=== PATIENT | female | born 1935 | race Caucasian/White ===

== ENCOUNTER 2018-11-17 04:22 | Inpatient (IN) | payer MEDICARE ==
[~2018-11-17] VITALS: Ht 170.2 cm; Wt 99.0 kg
[~2018-11-17 04:22] MED LIST: Z.0.ADVAIR 250-501 E IH; Z.0.COUMADIN4 MG PO; Z.0.LEXAPRO20 MG PO; Z.0.XANAX1 MG PO
[2018-11-17] MEDS ORDERED: IPRATROPIUM BROMIDE 0.02% 2.5 ML NEB NEB STA (04:53)
[2018-11-17] MEDS ORDERED: ALBUTEROL SULF 0.083% NEB SOLN 3 ML NEB NEB STA (04:53)
[2018-11-17] MEDS ORDERED: SODIUM CHLORIDE 0.9% 500ML 500 ML IV STA (04:53)
[2018-11-17] MEDS ORDERED: CEFEPIME HCL 2 GM VIAL IV ONE (05:00)
[2018-11-17] MEDS ORDERED: FAMOTIDINE 20 MG/2 ML VIAL IV ONE (05:00)
[2018-11-17] MEDS ORDERED: ONDANSETRON HCL INJ 2MG/ML 2ML 2 MG/ML VIAL IV PRN ×2 (05:00→06:45)
[2018-11-17] MEDS ORDERED: DILTIAZEM HCL 5 MG/ML 5 ML VIAL IV STA (05:25)
[2018-11-17] MEDS ORDERED: ACETAMINOPHEN 325 MG TAB PO ONE (05:30)
[2018-11-17 05:46] LABS: BASOPHILS % 0.3 % (0.0-1.0); EOSINOPHILS # (AUTO) 0.1 (0.0-0.4); EOSINOPHILS % 0.8 % (0.0-6.0); HEMATOCRIT 34.5 % (34.2-44.1); HEMOGLOBIN 11.6 g/dL (12.0-16.0); LYMPHOCYTES # (AUTO) 0.3 (1.0-3.2); LYMPHOCYTES % 3.6 % (18.0-39.1); MEAN CORPUSCULAR HEMOGLOBIN 31.8 pg (28-32); MEAN CORPUSCULAR HGB CONC 33.6 g/dL (31-35); MEAN CORPUSCULAR VOLUME 94.5 fL (81-99); MONOCYTES # (AUTO) 0.2 (0.2-0.8); MONOCYTES % 2.2 % (4.4-11.3); NEUTROPHILS # (AUTO) 8.8 (2.1-6.9); NEUTROPHILS % 92.5 % (38.7-80.0); PLATELET COUNT 93 x10e3/uL (140-360); RED BLOOD COUNT 3.65 x10e6/uL (3.6-5.1); RED CELL DISTRIBUTION WIDTH 12.7 % (11.7-14.4)
[2018-11-17 06:13] LABS: CREATINE KINASE MB 0.8 ng/mL (0-5.0)
[2018-11-17 06:14] LABS: ALBUMIN 3.5 g/dL (3.5-5.0); ANION GAP 14.6 mmol/L (8-16); CALCIUM 8.6 mg/dL (8.4-10.2); CREATININE, SERUM 1.55 mg/dL (0.57-1.11); POTASSIUM 3.6 mmol/L (3.5-5.1)
[2018-11-17] MEDS ORDERED: SODIUM CHLORIDE 0.9% 100 ML 100 ML IV ONE (06:15)
[2018-11-17] MEDS ORDERED: LACTULOSE SYRUP 20 GM/30 ML UDC PO PRN (06:45)
[2018-11-17] MEDS ORDERED: ACETAMINOPHEN 325 MG TAB PO PRN (06:45)
[2018-11-17] MEDS ORDERED: SODIUM CHLORIDE FLUSH 10 ML SYR INJ PRN (06:45)
[2018-11-17] MEDS ORDERED: AZITHROMYCIN 500MG/NS 250 ML 250 ML IV SCH (06:45)
[2018-11-17] MEDS ORDERED: DIPHENHYDRAMINE HCL INJ 50 MG/ML VIAL IV PRN (06:45)
[2018-11-17] MEDS ORDERED: CEFTRIAXONE SOD 1 GM VIAL IV SCH (06:45)
[2018-11-17] MEDS ORDERED: IBUPROFEN 200 MG TAB PO PRN (06:45)
[2018-11-17] MEDS ORDERED: SODIUM CHLORIDE 0.9% 100 ML ONE (06:45)
[2018-11-17] MEDS ORDERED: ZOLPIDEM TARTRATE 5 MG TAB PO PRN (06:45)
--- NOTE | 2018-11-17 06:50 | NUR ---
report given to cody mojica day shift nurse.
--- NOTE | 2018-11-17 06:50 | Diagnostic Imaging Report ---
EXAM: CHEST SINGLE (PORTABLE), AP 1 view INDICATION: Shortness of breath COMPARISON: None FINDINGS: LINES/TUBES: None LUNGS: No consolidations or edema. Mild bibasilar subsegmental atelectasis. PLEURA: No effusions or pneumothorax. HEART AND MEDIASTINUM: Within normal limits for technique. BONES AND SOFT TISSUES: No acute findings. IMPRESSION: Mild bibasilar subsegmental atelectasis. Signed by: Dr. Briseyda Curtis M.D. on 11/17/2018 6:47 AM
[2018-11-17 06:58] LABS: BILIRUBIN,URINE NEGATIVE (NEGATIVE); CLARITY,URINE CLEAR (CLEAR); COLOR,URINE YELLOW (YELLOW); KETONES,URINE NEGATIVE (NEGATIVE); LEUKOCYTE ESTERASE ,URINE NEGATIVE (NEGATIVE); NITRITE,URINE NEGATIVE (NEGATIVE); PROTEIN,URINE DIPSTICK NEGATIVE (NEGATIVE); URINE UROBILINOGEN 0.2 mg/dL (0.2 - 1)
[2018-11-17 06:59] LABS: BACTERIA,URINE RARE /HPF; EPITHELIAL CELLS,URINE RARE /LPF
--- OUTSIDE RECORDS SUMMARY | 2018-11-17 07:07 | XMS REPORT ---
Author Author [facility] Address Unknown Phone Unavailable Care Team Providers Care Therapeutic Massage Technician Name Role Phone Magdy MORALES Unavailable Unavailable Problems This patient has no known problems. Allergies, Adverse Reactions, Alerts This patient has no known allergies or adverse reactions. Medications This patient has no known medications. Results Test Description Test Time Test Comments Text Results Atomic Results Result Comments CHEST SINGLE (PORTABLE) 2018-11-17 06:46:00 [place] [address] Patient Name: JARED PACHECO MR #: [id number] : 1935 Age/Sex: 83/F Req #: [id number] Adm Physician: Ordered by: NICANOR MORALES MD Report #: [id number] Location: ER Room/Bed: Procedure: [id number] DX/CHEST SINGLE (PORTABLE) Exam Date: 11/17/18 Exam Time: 0600 REPORT STATUS: Signed EXAM: CHEST SINGLE (PORTABLE), AP 1 view INDICATION: Shortness of breath COMPARISON: None FINDINGS: LINES/TUBES: None LUNGS: No consolidations or edema. Mild bibasilar subsegmental atelectasis. PLEURA: No effusions or pneumothorax. HEART AND MEDIASTINUM: Within normal limits for technique. BONES AND SOFT TISSUES: No acute findings. IMPRESSION: Mild bibasilar subsegmental atelectasis. Signed by: Dr. Kaitlin Honeycutt M.D. on 11/17/2018 6:47 AM Dictated By: KAITLIN HONEYCUTT MD 6 Transcribed By: MOUSTAPHA on 11/17/18646 COPY TO: NICANOR MORALES MD
[2018-11-17] MEDS ORDERED: ESCITALOPRAM OX20 MG PO (07:30)
[2018-11-17] MEDS ORDERED: NITROFURANTOIN100 M1 PO (07:30)
[2018-11-17] MEDS ORDERED: FUROSEMIDE20 MG PO (07:30)
[2018-11-17] MEDS ORDERED: POTASSIUM CHLO10 ME1 PO (07:30)
[2018-11-17] MEDS ORDERED: LISINOPRIL2.5 MG PO (07:30)
[2018-11-17] MEDS ORDERED: SPIRIVA18 MCG IH (07:30)
[2018-11-17] MEDS ORDERED: LOPRESSOR25 MG PO (07:30)
[2018-11-17] MEDS ORDERED: ALPRAZOLAM0.5 MG PO (07:30)
[2018-11-17] MEDS ORDERED: VENTOLIN HFA18 GM (07:30)
[2018-11-17] MEDS ORDERED: FAMOTIDINE 20 MG TAB PO SCH (07:30)
[2018-11-17] MEDS ORDERED: ELIQUIS PO (07:30)
[2018-11-17] MEDS ORDERED: POTASSIUM CHLORIDE 20 MEQ TAB CR PO STA (08:53)
[2018-11-17] MEDS ORDERED: CEFTRIAXONE SOD 1 GM/NS 50 ML 50 ML IV SCH (09:00)
[2018-11-17] MEDS ORDERED: LISINOPRIL 2.5 MG TAB PO SCH (09:00)
[2018-11-17] MEDS ORDERED: METOPROLOL TARTRATE INJ 1 MG/ML VIAL IV PRN (09:00)
[2018-11-17] MEDS ORDERED: DOXYCYCLINE 100MG/NS 100ML 100 ML IV SCH (09:15)
[2018-11-17] MEDS: METOPROLOL TARTRATE 25 MG TAB PO SCH ×2 (10:00→17:48)
[2018-11-17] MEDS: APIXAB 2.5 MG TABLET PO SCH ×2 (10:00→17:47)
[2018-11-17] MEDS: FAMOTIDINE 20 MG TAB PO SCH (10:00)
[2018-11-17] MEDS: FUROSEMIDE 20 MG TAB PO SCH (10:00)
--- NOTE | 2018-11-17 10:01 | Consultation ---
DATE OF CONSULTATION: November 17, 2018 CARDIOLOGY CONSULTATION REASON FOR CONSULTATION: AFib with RVR. REFERRING PHYSICIAN: Dr. Portillo HPI: This is a pleasant, 83-year-old female that presented with shortness of breath. According to the patient, she was recently diagnosed with UTI by Dr. Goodman, and she has been on antibiotic. She also stated she had 2 days of symptoms of shortness of breath. She was unable to breathe, and she decided to come into the emergency room for evaluation. She has a history of chronic AFib. Used to be on Coumadin but was later switched to Eliquis. She follows up with Dr. Ford at the [facility]. She also has a history of systolic and diastolic CHF in the past and chronic kidney disease. She denied any chest pain, any diaphoresis, any nausea or vomiting. Cardiology was consulted for AFib with RVR. Troponin was negative. BNP 233. Chest x-ray showed mild bibasilar segmental atelectasis. PAST MEDICAL HISTORY: Chronic AFib, combined systolic and diastolic CHF, COPD, CKD, anxiety, tremors and frequent UTIs. PAST SURGICAL HISTORY: Cholecystectomy, appendectomy, hysterectomy, VANESSA with cardioversion, cataract surgery. FAMILY HISTORY: Positive for CAD. MEDICATIONS: She was on albuterol, alprazolam, Advair, nitrofurantoin, potassium, Spiriva, Eliquis, lisinopril, metoprolol, Lasix, and escitalopram. ALLERGIES: SHE IS ALLERGIC TO MYCIN AND CODEINE. REVIEW OF SYSTEMS: Negative except those mentioned above. She is positive for shortness of breath and AFib with RVR. PHYSICAL EXAMINATION VITAL SIGNS: Temperature 100, heart rate 110, respirations 20, and oxygen saturation 97% on 2 liters nasal cannula. Blood pressure 141/58. GENERAL: She is awake, alert and oriented times 3. HEENT: Mucous membranes moist. NECK: Supple. LUNGS: Bilateral with decreased breath sounds. CARDIOVASCULAR: Irregularly irregular. ABDOMEN: Soft. EXTREMITIES: No edema. NEUROLOGIC: Intact. LABS: Sodium 136, potassium 3.6, chloride 100, CO2 25, BUN 28, creatinine 1.5. Glucose 156. White blood cells 9.52, hemoglobin 11.6, hematocrit 34.5, platelets 93. IMPRESSION 1. Chronic atrial fibrillation with rapid ventricular response. 2. Chronic obstructive pulmonary disease exacerbation. 3. Urinary tract infection. 4. Chronic kidney disease. 5. Tremors. 6. History of congestive heart failure. 7. History of anxiety. ASSESSMENT AND PLAN 1. We will go ahead and get an echocardiogram to reassess the LV and valve function. 2. The heart rate fluctuates. We will continue her home beta donaldo, OMAR inhibitor and diuretic. 3. We will restart her home Eliquis. 4. Will check TSH. 5. Replace potassium. 6. Antibiotic per PCP. 7. Further cardiac workup pending clinical course. Thank you for this consultation. Dictated by Juan Ramon Hernandez NP Job#: [id number]
--- NOTE | 2018-11-17 10:20 | NUR ---
DR STAHL PAGED VIA THE OFFICE TO REPORT ON ELEVATED LACTIC ACID.
[2018-11-17] MEDS: ALBUTEROL/IPRATROPIUM 3 ML NEB NEB SCH ×4 (11:00→21:40)
[2018-11-17] MEDS: CEFTRIAXONE SOD 1 GM/NS 50 ML 50 ML IV SCH (11:24)
[2018-11-17 11:26] LABS: CREATINE KINASE MB 0.7 ng/mL (0-5.0)
--- NOTE | 2018-11-17 13:00 | NUR ---
PT ON BEDPAN AND SPILLED ALL THE URINE. UP TO CHAIR. BED CLEANED AND RE-LINENED; PT WITH NEW GOWN; PUT IN PAD AND DISP PANTY AT PT REQUEST. 1330 BACK TO BED; WARM BLANKETS APPLIED.
--- NOTE | 2018-11-17 13:45 | NUR ---
FLOOR RN CONCHA NOT AVAILABLE FOR REPORT
--- NOTE | 2018-11-17 13:55 | NUR ---
RE-CALLED FOR CONCHA ON [facility] ROOM [address] BUT SHE IS NOW NOT AVAILABLE. EMS CHARGE NURSE TO FOLLOW UP.
--- NOTE | 2018-11-17 14:00 | NUR ---
CHLOE DATA ENGINEER CHARGE CALLING TO [facility] 211 TO THE FLOOR X 2 PHONE CALLS NOT ABLE TO GET NURSE TO TAKE REPORT.
--- NOTE | 2018-11-17 14:09 | NUR ---
1400 DR STAHL RE-PAGED RE ELEVATED LACTIC ACID AND LOW BP; ED NURSE ELECTRIC SHOVEL OPERATOR RADHA AWARE AND GIVES IV FLUID ORDER WITH ABG
--- NOTE | 2018-11-17 14:10 | NUR ---
[facility]E [facility] ED CHARGE SPOKE WITH CHARGE FOR [facility] PAC[facility] [address] AND CONCHA ADAMS WILL CALL ME BACK FOR REPORT.
[2018-11-17] MEDS ORDERED: SODIUM CHLORIDE 0.9% 1000ML 1,000 ML IV SCH (14:15)
--- NOTE | 2018-11-17 14:20 | NUR ---
LAB AT BEDSIDE DRAWING THIRD LACTIC ACID
[2018-11-17] MEDS ORDERED: ALBUTEROL SULFATE HFA 8GM INHALATION AEROSOL INH PRN (14:30)
--- NOTE | 2018-11-17 14:43 | NUR ---
CONCHA ADAMS FROM 211 CALLS AND REPORT GIVEN BY PHONE; I WILL CALL HER LATER ABOUT IF DR SANCHEZ HAS BEEN CALLED; DR MEDELLIN HAS BEEN CALLED.
[2018-11-17] MEDS: AZITHROMYCIN 500MG/NS 250 ML 250 ML IV SCH (14:45)
[2018-11-17] MEDS ORDERED: ALPRAZOLAM 1 MG TAB PO PRN ×2 (14:45→15:00)
[2018-11-17 15:00] VITALS: BP 114/55
--- NOTE | 2018-11-17 15:00 | NUR ---
Pt admitted to floor at this time from ER. Pt admitted for SOB. Pt denies SOB at this time. Pt is aox4 and able to verbalize needs. Denies any pain at this time. Pt is able to ambulate with min assist to toilet. Dr. Ely and Dr. Lopez were both consulted and both saw pt in ER. Attending also saw pt in ER.
[2018-11-17 15:04] LABS: ABG HCO3 17 mmol/L (23-28); ABG PCO2 31 mmHg (41-51); ABG PH 7.35 (7.31-7.41); ABG PO2 103 mmHg (80-105)
[2018-11-17 16:00] VITALS: BP 114/55
--- NOTE | 2018-11-17 16:07 | Consultation ---
DATE OF CONSULTATION: November 17, 2018 PULMONARY/CRITICAL CARE CONSULTATION PRIMARY CARE PHYSICIAN: Dr. Deonte Goodman. REFERRING PHYSICIAN: Dr. Damion Yung CHIEF COMPLAINT: Cough and dyspnea. HISTORY OF PRESENT ILLNESS: The patient is an 83-year-old woman with a history of asthma. She was recently diagnosed by Dr. Goodman as having COPD. She also has a history of atrial fibrillation that has required cardioversion in the past. Several days ago she started Macrobid for her urinary tract infection. She said after taking the Macrobid she had more trouble breathing and more phlegm production. Her phlegm is slightly discolored. She denies any fever. She is not having any chest pain. After coming to the emergency department, she received some diltiazem as well as some breathing treatments and some Solu-Medrol. She reports feeling better with this. PAST MEDICAL HISTORY 1. Asthma and COPD. 2. Chronic atrial fibrillation. 3. Systolic and diastolic heart failure. 4. Anxiety. PAST SURGICAL HISTORY 1. Status post cholecystectomy. 2. Status post appendectomy. 3. Status post hysterectomy. 4. Status post cardioversion. 5. Prior cardiac characterization. ALLERGIES: SHE IS ALLERGIC TO MACROBID. FAMILY HISTORY: Positive for coronary artery disease. SOCIAL HISTORY: The patient never smoked. She is not a drinker. REVIEW OF SYSTEMS: She denies any fevers. She has no headache. No neck pain. She has no sore throat. She has no swollen glands. She has no chest pain. She has some wheezing and cough. She notes some phlegm production. She also had a fast heart rate. She denies abdominal pain. There is no nausea or vomiting. She has no leg edema. PHYSICAL EXAMINATION VITALS: Blood pressure is 97/30 with a pulse of 80. The patient is afebrile. The saturation is 100%. HEENT: Examination shows no facial swelling or erythema. Nasal mucosa is normal. The oropharynx is normal. LYMPHATIC: Examination shows no submandibular, cervical or supraclavicular adenopathy. CARDIAC: Exam reveals regular rate and rhythm with normal S1 and S2. There are no murmurs or rubs. LUNGS: Auscultation of the lungs reveals clear breath sounds bilaterally. There is a prolonged expiratory phase but no audible wheezing at this time. ABDOMEN: Soft, nontender. There is no rebound or guarding. EXTREMITIES: No leg edema or calf tenderness. There is no cyanosis or clubbing. NEUROLOGIC: Exam shows no focal abnormalities. SKIN: Examination shows no rashes. LABORATORY DATA: BNP is 233.7, and the TSH is normal. The MOJ-be-ytibcuubeo ratio is 28 to 1.55 with normal electrolytes. Liver function tests are normal. White blood cell count is 9.5, and hemoglobin is 12.6. The platelet count is 93. RADIOGRAPHIC DATA: Chest x-ray shows mild bibasilar atelectasis. IMPRESSION 1. Chronic obstructive pulmonary disease with acute exacerbation. 2. Thrombocytopenia. 3. Chronic atrial fibrillation with rapid ventricular response. 4. Chronic renal disease, stage 3. 5. Anxiety. 6. Chronic systolic and diastolic heart failure. PLAN 1. Continue Lopressor for rate control along with some Lasix. 2. Zithromax and Rocephin. 3. Obtain cultures. 4. Continue Spiriva and Advair. 5. Nebulizer treatments as needed. Job#: [id number]
[2018-11-17] MEDS: SALMETEROL/FLUTICASONE 250/50 INH SCH (18:56)
[2018-11-17 20:00] VITALS: BP 107/64
[2018-11-17] MEDS: ESCITALOPRAM OXALATE 10 MG TAB PO SCH (21:03)
[2018-11-17] MEDS: ALPRAZOLAM 1 MG TAB PO SCH (21:03)
[2018-11-18] VITALS (7 sets, daily range): BP systolic 104–135; BP diastolic 54–63
[2018-11-18] MEDS: ALBUTEROL/IPRATROPIUM 3 ML NEB NEB SCH ×6 (03:00→23:10)
[2018-11-18 05:00] LABS: BASOPHILS % 0.1 % (0.0-1.0); EOSINOPHILS # (AUTO) 0.1 (0.0-0.4); EOSINOPHILS % 1.4 % (0.0-6.0); HEMOGLOBIN 9.1 g/dL (12.0-16.0); LYMPHOCYTES # (AUTO) 0.6 (1.0-3.2); LYMPHOCYTES % 7.3 % (18.0-39.1); MEAN CORPUSCULAR HEMOGLOBIN 31.7 pg (28-32); MEAN CORPUSCULAR HGB CONC 33.7 g/dL (31-35); MEAN CORPUSCULAR VOLUME 94.1 fL (81-99); MONOCYTES # (AUTO) 0.4 (0.2-0.8); MONOCYTES % 5.2 % (4.4-11.3); NEUTROPHILS # (AUTO) 6.9 (2.1-6.9); PLATELET COUNT 78 x10e3/uL (140-360); RED BLOOD COUNT 2.87 x10e6/uL (3.6-5.1); RED CELL DISTRIBUTION WIDTH 12.9 % (11.7-14.4)
[2018-11-18 05:25] LABS: ALBUMIN 2.7 g/dL (3.5-5.0); ALBUMIN/GLOBULIN RATIO 0.8 (0.8-2.0); ANION GAP 12.2 mmol/L (8-16); CALCIUM 7.7 mg/dL (8.4-10.2); CREATININE, SERUM 1.27 mg/dL (0.57-1.11); POTASSIUM 4.2 mmol/L (3.5-5.1)
--- NOTE | 2018-11-18 07:10 | NUR ---
RCD PT AT BED PT IS ALERT AND ORIENTED ASSESSMENT DONE PT RESTING ON BED NO SIGNS OF ANY DISTRESS NOTED IV PATENT BED LOW AND LOCK CALL LIGHT IN REACH
[2018-11-18] MEDS: FAMOTIDINE 20 MG TAB PO SCH ×2 (07:30→16:30)
[2018-11-18] MEDS ORDERED: FUROSEMIDE INJ 10 MG/ML 2 ML VIAL IV ONE (07:30)
[2018-11-18] MEDS ORDERED: ESCITALOPRAM OXALATE 10 MG TAB PO SCH (09:00)
[2018-11-18] MEDS: OYST-CAL-D 500MG TABLET PO SCH ×2 (09:00→16:54)
[2018-11-18] MEDS: METOPROLOL TARTRATE 25 MG TAB PO SCH ×2 (09:00→16:54)
[2018-11-18] MEDS: APIXAB 2.5 MG TABLET PO SCH ×2 (09:00→16:54)
[2018-11-18] MEDS: FUROSEMIDE 20 MG TAB PO SCH (09:00)
[2018-11-18] MEDS: CEFTRIAXONE SOD 1 GM/NS 50 ML 50 ML IV SCH (09:09)
[2018-11-18] MEDS ORDERED: SODIUM CHLORIDE 0.9% 250ML 250 ML ONE (09:13)
[2018-11-18] MEDS: TIOTROPIUM 18 MCG INH POWDER INH SCH (10:49)
[2018-11-18] MEDS: SALMETEROL/FLUTICASONE 250/50 INH SCH ×2 (10:49→19:00)
--- NOTE | 2018-11-18 14:25 | NUR ---
CASE MANAGEMENT INITIAL ASSESSMENT Bobbin Handler to bedside to discuss plan of care with patient/family. CM/SW role and care transitions discussed. Anticipated discharge plan discussed along with duration of care. CM discussed patients right to make decisions in care. CM/SW work hours given. Patient lives: PATIENT LIVES IN [address] [facility] [place] ([id number]) WITH Admit/Transfer: ED POA/Emergency contact: ANDRES SPECK: [phone] Current/Previous Home Health: N/A PATIENT UNABLE TO RECALL PCP/Follow-up Care: DR. SIL IVEY Current/Previous DME: [facility] Other Services: N/A ; PATIENT NOT ABLE TO RECALL Employment Status: RETIRED Areas of Concerns: NONE AT THIS TIME Referral Needs: NONE AT THIS TIME Education Needs: NONE IMM/HOWELL given and signed (if applicable): IMM Goal for discharge: DISCHARGE HOME INDEPENDENT WITH NO NEEDS CM left business card at the bedside with contact information. Name and number was also written on the patients whiteboard. Patient verbalized understanding of discussion. CM will follow-up with ongoing discharge and transition of care needs.
[2018-11-18] MEDS: AZITHROMYCIN 500MG/NS 250 ML 250 ML IV SCH (14:45)
--- NOTE | 2018-11-18 15:00 | NUR ---
PT SAID SHE IS ALLERGIC TO AZITHROMYCIN NOTIFIED TAMMY ANDERSON GOT THE ORDER TO STOP AZITHROMYCIN
--- NOTE | 2018-11-18 18:43 | NUR ---
PT RESTING ON BED BED SIDE REPORT GIVEN TO ONCOMING NURSE
[2018-11-18] MEDS: ALPRAZOLAM 1 MG TAB PO SCH (20:32)
[2018-11-18] MEDS: ESCITALOPRAM OXALATE 10 MG TAB PO SCH (20:32)
[2018-11-19] VITALS (7 sets, daily range): BP systolic 123–140; BP diastolic 61–69
[2018-11-19] MEDS: ALBUTEROL/IPRATROPIUM 3 ML NEB NEB SCH ×6 (03:05→23:22)
[2018-11-19 05:13] LABS: BASOPHILS % 0.5 % (0.0-1.0); EOSINOPHILS # (AUTO) 0.3 (0.0-0.4); EOSINOPHILS % 6.9 % (0.0-6.0); HEMATOCRIT 27.5 % (34.2-44.1); HEMOGLOBIN 9.3 g/dL (12.0-16.0); LYMPHOCYTES # (AUTO) 1.2 (1.0-3.2); LYMPHOCYTES % 27.6 % (18.0-39.1); MEAN CORPUSCULAR HEMOGLOBIN 31.7 pg (28-32); MEAN CORPUSCULAR HGB CONC 33.8 g/dL (31-35); MEAN CORPUSCULAR VOLUME 93.9 fL (81-99); MONOCYTES # (AUTO) 0.4 (0.2-0.8); MONOCYTES % 8.5 % (4.4-11.3); NEUTROPHILS # (AUTO) 2.4 (2.1-6.9); PLATELET COUNT 81 x10e3/uL (140-360); RED BLOOD COUNT 2.93 x10e6/uL (3.6-5.1); RED CELL DISTRIBUTION WIDTH 13.2 % (11.7-14.4)
[2018-11-19 05:39] LABS: ANION GAP 11.5 mmol/L (8-16); CALCIUM 8.4 mg/dL (8.4-10.2); CREATININE, SERUM 1.28 mg/dL (0.57-1.11); MAGNESIUM 2.2 MG/DL (1.3-2.1); POTASSIUM 3.5 mmol/L (3.5-5.1)
[2018-11-19] MEDS: SALMETEROL/FLUTICASONE 250/50 INH SCH ×2 (07:00→19:35)
[2018-11-19] MEDS ORDERED: CEFUROXIME500 MG PO (07:04)
[2018-11-19] MEDS ORDERED: Apixab PO (07:04)
[2018-11-19] MEDS ORDERED: Calcium Carbonate PO (07:04)
[2018-11-19] MEDS ORDERED: DOCUSATE SODIU100 MG PO (07:05)
[2018-11-19] MEDS ORDERED: ASCORBIC ACID500 MG PO (07:05)
[2018-11-19] MEDS ORDERED: FERROUS SULFAT325 MG PO (07:05)
[2018-11-19 07:07] LABS: FERRITIN 84.9 ng/mL (4.63-204.00)
[2018-11-19 07:30] LABS: FOLATE 28.2 ng/mL (7.0-15.4)
[2018-11-19] MEDS: FAMOTIDINE 20 MG TAB PO SCH ×2 (07:30→16:21)
[2018-11-19] MEDS: TIOTROPIUM 18 MCG INH POWDER INH SCH (07:43)
[2018-11-19] MEDS: DOCUSATE SODIUM 100 MG CAP PO SCH ×2 (09:00→16:22)
[2018-11-19] MEDS: METOPROLOL TARTRATE 25 MG TAB PO SCH ×2 (09:00→16:22)
[2018-11-19] MEDS: APIXAB 2.5 MG TABLET PO SCH ×2 (09:00→16:22)
[2018-11-19] MEDS: OYST-CAL-D 500MG TABLET PO SCH ×2 (09:00→16:22)
[2018-11-19] MEDS ORDERED: POLYETHYLENE GLYCOL 3350 17 GM PACK PO SCH (09:00)
[2018-11-19] MEDS: FUROSEMIDE 20 MG TAB PO SCH (09:00)
[2018-11-19] MEDS: CEFTRIAXONE SOD 1 GM/NS 50 ML 50 ML IV SCH (09:30)
[2018-11-19] MEDS: POLYETHYLENE GLYCOL 3350 17 GM PACK PO SCH (17:30)
--- NOTE | 2018-11-19 18:00 | NUR ---
PT DONT HAVE ANY BOWEL MOVEMENT TODAY
--- NOTE | 2018-11-19 19:02 | NUR ---
PT RESTING ON BED BED SIDE REPORT GIVEN TO ONCOMING NURSE
[2018-11-19] MEDS: ALPRAZOLAM 1 MG TAB PO SCH (20:25)
[2018-11-19] MEDS: ESCITALOPRAM OXALATE 10 MG TAB PO SCH (20:25)
[2018-11-20] VITALS (7 sets, daily range): BP systolic 108–145; BP diastolic 58–68
[2018-11-20] MEDS: ALBUTEROL/IPRATROPIUM 3 ML NEB NEB SCH ×4 (02:25→15:00)
[2018-11-20 05:28] LABS: BASOPHILS % 0.9 % (0.0-1.0); EOSINOPHILS # (AUTO) 0.3 (0.0-0.4); EOSINOPHILS % 9.1 % (0.0-6.0); HEMATOCRIT 30.3 % (34.2-44.1); HEMOGLOBIN 10.2 g/dL (12.0-16.0); LYMPHOCYTES # (AUTO) 1.1 (1.0-3.2); LYMPHOCYTES % 33.8 % (18.0-39.1); MEAN CORPUSCULAR HEMOGLOBIN 31.7 pg (28-32); MEAN CORPUSCULAR HGB CONC 33.7 g/dL (31-35); MEAN CORPUSCULAR VOLUME 94.1 fL (81-99); MONOCYTES # (AUTO) 0.3 (0.2-0.8); MONOCYTES % 8.8 % (4.4-11.3); NEUTROPHILS # (AUTO) 1.6 (2.1-6.9); NEUTROPHILS % 47.1 % (38.7-80.0); PLATELET COUNT 95 x10e3/uL (140-360); RED BLOOD COUNT 3.22 x10e6/uL (3.6-5.1); RED CELL DISTRIBUTION WIDTH 12.9 % (11.7-14.4)
[2018-11-20 05:52] LABS: ANION GAP 11.8 mmol/L (8-16); CALCIUM 8.7 mg/dL (8.4-10.2); CREATININE, SERUM 1.35 mg/dL (0.57-1.11); MAGNESIUM 2.1 MG/DL (1.3-2.1); POTASSIUM 3.8 mmol/L (3.5-5.1)
[2018-11-20] MEDS: SALMETEROL/FLUTICASONE 250/50 INH SCH (07:00)
[2018-11-20] MEDS: POLYETHYLENE GLYCOL 3350 17 GM PACK PO SCH (08:46)
[2018-11-20] MEDS: FUROSEMIDE 20 MG TAB PO SCH (08:46)
[2018-11-20] MEDS: APIXAB 2.5 MG TABLET PO SCH (08:46)
[2018-11-20] MEDS: FAMOTIDINE 20 MG TAB PO SCH (08:46)
[2018-11-20] MEDS: DOCUSATE SODIUM 100 MG CAP PO SCH (08:46)
[2018-11-20] MEDS: METOPROLOL TARTRATE 25 MG TAB PO SCH (08:46)
[2018-11-20] MEDS: CEFTRIAXONE SOD 1 GM/NS 50 ML 50 ML IV SCH (08:47)
[2018-11-20] MEDS: OYST-CAL-D 500MG TABLET PO SCH (08:47)
[2018-11-20] MEDS ORDERED: CITRATE OF MAGNESIA 300ML BOTTLE PO ONE (09:15)
--- NOTE | 2018-11-20 09:30 | NUR ---
Mag citrate was given to patient to have BM before discharge.
--- NOTE | 2018-11-20 10:52 | NUR ---
CM SPOKE TO PATIENT AT BEDSIDE REGARDING IMM LETTER. IMM LETTER GIVEN WITH EXPLANATION BY INTERPRETING LINE. ORIGINAL COPY SIGNED AND PLACED IN CHART; COPY OF ORIGINAL DOCUMENT GIVEN TO PATIENT AT BEDSIDE AND PLACED IN CARE TRANSITION FOLDER. CM CONTACT INFORMATION GIVEN TO PATIENT FOR ANY NEEDS OR CONCERNS. PATIENT WITH NO FURTHER QUESTIONS.
[2018-11-20] MEDS: TIOTROPIUM 18 MCG INH POWDER INH SCH (10:54)
--- NOTE | 2018-11-20 11:04 | NUR ---
Patient states she has still not had a BM after receiving mag citrate, she is to be discharged home after she has a BM.
--- NOTE | 2018-11-20 16:32 | NUR ---
Patient refused soap suds enema. Notified BIOINFORMATICIST that patient has refused enema and never had a BM. WIll continue with dc home.
--- NOTE | 2018-11-20 16:48 | Discharge Summary ---
ADMISSION DIAGNOSES 1. Atrial fibrillation with rapid ventricular response. 2. Acute exacerbation chronic obstructive pulmonary disease. 3. Acute kidney injury versus chronic kidney disease. 4. Hypertension. 5. Dysuria. 6. Fever. 7. Thrombocytopenia. 8. Dlyyg-wc-hbkmegc systolic congestive heart failure. DISCHARGE DIAGNOSES 1. Atrial fibrillation with rapid ventricular response. 2. Acute exacerbation chronic obstructive pulmonary disease. 3. Acute kidney injury versus chronic kidney disease. 4. Hypertension. 5. Dysuria. 6. Fever. 7. Thrombocytopenia. 8. Uljni-qh-ntcigzn systolic congestive heart failure. 9. Constipation. 10. Ruled out urinary tract infection. HISTORY: Patient has a history of AFib, COPD, hypertension, chronic systolic CHF, cervical cancer. SURGICAL HISTORY: Cholecystectomy, hysterectomy, left inguinal hernia repair, appendectomy. FAMILY HISTORY: Patient's brother had diabetes. Patient's mother, sister and brother had cancer. Patient's father had a stroke. SOCIAL HISTORY: Noncontributory. Patient admits to quitting smoking in her 30s. HOSPITAL COURSE: Ctpwbb-xjo-cdzk-old female complains of shortness of breath that began two to three hours after taking Macrobid. She says she feels like this happened before when she took Macrobid as well. Shortness of breath improved with breathing treatment and worse with exertion. She also complains of dysuria but denies hematuria, fever, wound and sick contacts. On admission patient was started on Rocephin due to her ALLERGY TO MYCIN ANTIBIOTICS. She was given diltiazem in the ER to correct the AFib/RVR. She was started on metoprolol and Eliquis. TSH was normal. Cardio was consulted. Echo showed an EF of 45% to 50% with mild to moderate AI and TR with trace to mild MR. Chest x-ray showed subsegmental atelectasis. Pulmonology was consulted for COPD. Blood cultures were negative. Urine culture was negative. Vital signs stable, patient afebrile. Patient continued to improve on the Rocephin. She was also found to be anemic. So, she will discharge home with iron, vitamin C, Colace, Ceftin p.o. She will resume her Eliquis and metoprolol as well as other home medicines. She will discontinue use of Macrobid. Vital signs stable, patient afebrile. Patient understands discharge instructions and agrees to plan. Dictated by: Josette Han, ANGLE ROLL OPERATOR SIL STAHL MD Job#: [id number]
--- NOTE | 2018-11-20 17:21 | NUR ---
Discharge instructions and prescriptions given to the patient and her . They verbalized understanding. IV to the left hand removed with tip intact.
--- NOTE | 2018-11-20 17:31 | NUR ---
Patient left the floor via wheelchair, she is discharged home.
== END 2018-11-20 17:31 | disposition home or self-care (01) | DRG 291 ==
LOC: ER 04:22 → ERHOLD 06:44 → MED/SURG2 15:11
PROVIDERS: ADMIT Internal Medicine; ATTEND Internal Medicine
DX: I13.0 Hypertensive heart and chronic kidney disease with heart failure and stage 1 through stage 4 chronic kidney disease, or unspecified chronic kidney disease (principal); I50.43 Acute on chronic combined systolic (congestive) and diastolic (congestive) heart failure; J44.1 Chronic obstructive pulmonary disease with (acute) exacerbation; N17.9 Acute kidney failure, unspecified; I48.2 Chronic atrial fibrillation; Z79.01 Long term (current) use of anticoagulants; N18.9 Chronic kidney disease, unspecified; D69.6 Thrombocytopenia, unspecified; R30.0 Dysuria; F41.9 Anxiety disorder, unspecified; N18.3 Chronic kidney disease, stage 3 (moderate); R25.1 Tremor, unspecified; E83.51 Hypocalcemia; D64.9 Anemia, unspecified; E83.41 Hypermagnesemia
CPT/HCPCS: 36415; 71045; 80048; 80053; 81001; 82550; 82553; 82607; 82728; 82746; 82805; 83540; 83605; 83735; 83880; 84443; 84466; 84484; 85025; 87040; 87070; 87086; 87205; 87400; 93005; 93306; 94640; 94664; 99284; J0456; J0692; J0696; J1940; J7030; J7040; J7050